=== PATIENT | male | born 2000 | race Two or more races ===

== ENCOUNTER 2018-03-21 12:04 | Emergency (ER) | payer MEDICAID, OTHER ==
[~2018-03-21] VITALS: Ht 177.8 cm; Wt 61.2 kg
[~2018-03-21 12:04] MED LIST: IBUPROFEN600 MG ORAL; NKM
[2018-03-21 12:32] VITALS: BP 114/63
[2018-03-21] MEDS ORDERED: Sodium Chloride 500ML 500 ML IV ONE (12:47)
--- NOTE | 2018-03-21 12:47 | Emergency Room Report ---
History of Present Illness General Chief Complaint: Syncope Source: Patient Present Illness HPI 17-year-old male patient presents ER complaining of fainting earlier today. Patient reports that he was in a bathroom stall attempting to defecate for several minutes when he stood up and began to feel dizzy and passed out. Patient reports straining with attempted bowel movement. Patient reports last normal bowel movement yesterday. Patient reports diffuse abdominal pain during this time. Patient denies other acute symptoms at this time. Patient denies history of fainting. Patient denies fever, chest pain, shortness of breath. Patient denies hitting his head after fainting, states it was not observed. Patient denies tinnitus, vertigo, hearing loss. Allergies: Coded Allergies: No Known Allergies (Unverified , 06/21/15) Patient History Past Medical History: see triage record Reviewed Nursing Documentation: PMH: Agreed; PSxH: Agreed Nursing Documentation-PMH Past Medical History: No Stated History Review of Systems All Other Systems: negative except mentioned in HPI Physical Exam Vital Signs Date Time Temp Pulse Resp B/P (MAP) Pulse Ox O2 Delivery O2 Flow Rate FiO2 03/21/18 12:12 98.6 76 18 114/63 98 Room Air 98.6 Sp02 EP Interpretation: reviewed, normal General Appearance: well appearing, no apparent distress, alert, GCS 15, non- toxic Head: normocephalic, atraumatic Eyes: bilateral eye normal inspection, bilateral eye PERRL ENT: hearing grossly normal, normal pharynx, no angioedema, normal voice, uvula midline, moist mucus membranes Neck: full range of motion Respiratory: lungs clear, normal breath sounds, no rhonchi, no respiratory distress, no accessory muscle use, no wheezing, speaking full sentences Cardiovascular #1: regular rate, rhythm, no edema Gastrointestinal: non tender, soft, no mass, non-distended, no guarding, no rebound, other - negative Vila, negative Rovsing, negative heel tap Genitourinary: no CVA tenderness Musculoskeletal: back normal, digits/nails normal, gait/station normal, normal range of motion, non-tender Neurologic: alert, oriented x3, responsive, motor strength/tone normal, sensory intact Psychiatric: mood/affect normal Skin: no rash Lymphatic: no adenopathy Medical Decision Making PA Attestation Dr. Arana is my supervising Physician whom patient management has been discussed with. Diagnostic Impression: Primary Impression: Vasovagal syncope Additional Impression: Constipation ER Course Pt. presents to the ED c/o fainting and abdominal pain. Ddx considered but are not limited to Syncope, vasovagal, constipation, arrhythmia, drug use. Patient denies vertigo or tinnitus, does not require imaging at this time. Vital signs: are WNL, pt. is afebrile ER COURSE: physical exam benign, no abdominal tenderness to palpation on distraction. Labs shows unremarkable, no elevation in LFTs, mild elevation of WBCs likely secondary to pain and stress, pt is afebrile, does not require acute treatment at this time. Return to ER for new or worsening of symptoms. EKG shows incomplete right bundle-branch block, Consult with Dr. Arana, does not require acute treatment, follow with cardiology, request referral from PCP. CXRshows no acute disease per the official reading. KUB shows no acute disease. Patient reading. UA negative Urine drug screen negative Discuss results with patient. Informed patient syncopal episode likely due to repeated straining while on toilet. Informed patient straining likely secondary to constipation. informed patient not to strain on the toilet. Increase water intake and fiber intake. Will provide medication for constipation symptoms. Take Tylenol for pain symptoms. On repeat physical examination, no abdominal TTP. patient resting comfortably no acute distress, nontoxic-appearing, walking around normally. Patient able to tolerate fluids and food by mouth. Patient okay for discharge to home. ER precautions given Follow with PCP and discuss referral to GI and cardiology. DISCHARGE: Rx provided for Lactulose Rx provided for Tylenol At this time pt is stable for d/c to home. Patient is resting comfortably, in no acute distress, nontoxic appearing, talking without difficulty, smiling and laughing. Patient to take medications as instructed Will provide with patient care instructions and any necessary prescriptions. Care plan and follow-up instructions provided. Patient instructed to follow-up with primary care provider in 3 - 5 days. Patient questions asked and answered. Patient reports understanding and agreement to treatment plan. ER precautions given. Patient instructed to return to ER immediately for any new or worsening of symptoms including but not limited to increasing SOB, persistent fever, chest pain, intractable vomiting. - Please note that this Emergency Department Report was dictated using [employer] technology software, occasionally this can lead to erroneous entry secondary to interpretation by the dictation equipment. Labs Test 03/21/18 13:05 03/21/18 13:15 Urine Color Yellow Urine Appearance Clear Urine pH 6.5 (4.5-8.0) Urine Specific [place] 1.015 (1.005-1.035) Urine Protein Negative (NEGATIVE) Urine Glucose (UA) Negative (NEGATIVE) Urine Ketones Negative (NEGATIVE) Urine Occult Blood Negative (NEGATIVE) Urine Nitrite Negative (NEGATIVE) Urine Bilirubin Negative (NEGATIVE) Urine Urobilinogen Normal MG/DL (0.0-1.0) Urine Leukocyte Esterase Negative (NEGATIVE) Urine Opiates Screen Negative (NEGATIVE) Urine Barbiturates Screen Negative (NEGATIVE) Phencyclidine (PCP) Screen Negative (NEGATIVE) Urine Amphetamines Screen Negative (NEGATIVE) Urine Benzodiazepines Screen Negative (NEGATIVE) Urine Cocaine Screen Negative (NEGATIVE) Urine Marijuana (THC) Screen Negative (NEGATIVE) White Blood Count 14.4 K/UL (4.8-10.8) Red Blood Count 5.81 M/UL (4.70-6.10) Hemoglobin 17.4 G/DL (14.2-18.0) Hematocrit 51.7 % (42.0-52.0) Mean Corpuscular Volume 89 FL (80-99) Mean Corpuscular Hemoglobin 30.0 PG (27.0-31.0) Mean Corpuscular Hemoglobin Concent 33.7 G/DL (32.0-36.0) Red Cell Distribution Width 10.9 % (11.6-14.8) Platelet Count 213 K/UL (150-450) Mean Platelet Volume 8.1 FL (6.5-10.1) Neutrophils (%) (Auto) 80.7 % (45.0-75.0) Lymphocytes (%) (Auto) 14.4 % (20.0-45.0) Monocytes (%) (Auto) 4.3 % (1.0-10.0) Eosinophils (%) (Auto) 0.1 % (0.0-3.0) Basophils (%) (Auto) 0.5 % (0.0-2.0) Sodium Level 141 MMOL/L (136-145) Potassium Level 4.5 MMOL/L (3.5-5.1) Chloride Level 103 MMOL/L (98-107) Carbon Dioxide Level 25 MMOL/L (21-32) Anion Gap 13 mmol/L (5-15) Blood Urea Nitrogen 14 mg/dL (7-18) Creatinine 1.1 MG/DL (0.55-1.30) Estimat Glomerular Filtration Rate > 60 mL/min (>60) Glucose Level 96 MG/DL (74-106) Calcium Level 10.0 MG/DL (8.5-10.1) Total Bilirubin 0.7 MG/DL (0.2-1.0) Aspartate Amino Transf (AST/SGOT) 31 U/L (15-37) Alanine Aminotransferase (ALT/SGPT) 40 U/L (12-78) Alkaline Phosphatase 76 U/L (46-116) Total Creatine Kinase 129 U/L (26-308) Creatine Kinase MB 0.9 NG/ML (0.0-3.6) Creatine Kinase MB Relative Index 0.6 Troponin I 0.000 ng/mL (0.000-0.056) Total Protein 8.7 G/DL (6.4-8.2) Albumin 4.8 G/DL (3.4-5.0) Globulin 3.9 g/dL Lipase 95 U/L (73-393) EKG Diagnostic Results Rate: normal Rhythm: NSR ST Segments: other - incomplete RBBB ASA given to the pt in ED: No PA Scribe Text Rad Guzman PA-C Rhythm Strip Diag. Results EP Interpretation: yes Rate: 63 Rhythm: NSR, no PVC's, no ectopy PA Scribe Text Rad Guzman PA-C Chest X-Ray Diagnostic Results Chest X-Ray Diagnostic Results : Chest X-Ray Ordered: Yes # of Views/Limited/Complete: 1 View Indication: Chest Pain EP Interpretation: Yes PA Xray: Interpretation reviewed, by supervising MD, and agrees with findings. Interpretation: no consolidation, no effusion, no pneumothorax, no acute cardiopulmonary disease Impression: No acute disease PA Scribe Text Rad Guzman PA-C Other X-Ray Diagnostic Results Other X-Ray Diagnostic Results : X-Ray ordered: LUB # of Views/Limited Vs Complete: 1 View Indication: Pain EP Interpretation: Yes PA Xray: Interpretation reviewed, by supervising MD, and agrees with findings. Interpretation: no dislocation, no soft tissue swelling, no fractures, nonspecific bowel gas Impression: No acute disease PA Scribe Text Rad Guzman PA-C Last Vital Signs Date Time Temp Pulse Resp B/P (MAP) Pulse Ox O2 Delivery O2 Flow Rate FiO2 03/21/18 12:12 98.6 76 18 114/63 98 Room Air 98.6 Disposition: HOME, SELF-CARE Condition: Stable Scripts Acetaminophen* (TYLENOL EXTRA STRENGTH*) 500 Mg Tablet 500 MG ORAL Q8H PRN for Prn Headache/Temp > 101, #30 TAB 0 Refills Prov: Giuseppe Guzman 03/21/18 Lactulose (LACTULOSE*) 20 Gm/30 Ml Solution 30 ML ORAL DAILY for 2 Days, #90 ML 0 Refills Prov: Giuseppe Guzman 03/21/18 Patient Instructions: Constipation, Adult, [id number], Vasovagal Syncope, Adult Additional Instructions: Followup with primary care provider in 3 -5 days. Followup with cardiology regarding incomplete RBBB. Drink plenty of fluids. Take medications as directed. Patient questions asked and answered. ER precautions given, patient instructed to return to ER immediately for any new or worsening of symptoms. Giuseppe Guzman March 21, 2018 12:46
[2018-03-21] MEDS ORDERED: Acetaminophen 500mg (ES) tab ORAL ONE (13:00)
[2018-03-21 13:32] LABS: HEMATOCRIT 51.7 % (42.0-52.0); HEMOGLOBIN 17.4 G/DL (14.2-18.0); LYMPHOCYTES % (AUTO) 14.4 % (20.0-45.0); MEAN CORPUSCULAR VOLUME 89 FL (80-99); NEUTROPHILS % (AUTO) 80.7 % (45.0-75.0); PLATELET COUNT 213 K/UL (150-450); RED BLOOD COUNT 5.81 M/UL (4.70-6.10); RED CELL DISTRIBUTION WIDTH 10.9 % (11.6-14.8); WHITE BLOOD COUNT 14.4 K/UL (4.8-10.8)
[2018-03-21 13:33] LABS: BASOPHILS % (AUTO) 0.5 % (0.0-2.0); EOSINOPHILS % (AUTO) 0.1 % (0.0-3.0); MONOCYTES % (AUTO) 4.3 % (1.0-10.0)
[2018-03-21 13:34] LABS: APPEARANCE,URINE CLEAR; BILIRUBIN, URINE NEGATIVE (NEGATIVE); COLOR,URINE YELLOW; GLUCOSE, URINE (UA) NEGATIVE (NEGATIVE); KETONES,URINE NEGATIVE (NEGATIVE); LEUKOCYTE ESTERASE ,URINE NEGATIVE (NEGATIVE); NITRITE,URINE NEGATIVE (NEGATIVE); PH,URINE 6.5 (4.5-8.0); PROTEIN,URINE NEGATIVE (NEGATIVE); UROBILINOGEN,URINE NORMAL MG/DL (0.0-1.0)
[2018-03-21 14:20] LABS: ALANINE AMINOTRANSFERASE 40 U/L (12-78); ALKALINE PHOSPHATASE 76 U/L (46-116); ANION GAP 13 mmol/L (5-15); ASPARTATE AMINO TRANSFERASE 31 U/L (15-37); BILIRUBIN,TOTAL 0.7 MG/DL (0.2-1.0); BLOOD UREA NITROGEN 14 mg/dL (7-18); CARBON DIOXIDE 25 MMOL/L (21-32); CHLORIDE 103 MMOL/L (98-107); CKMB 0.9 NG/ML (0.0-3.6); CREATINE KINASE 129 U/L (26-308); POTASSIUM 4.5 MMOL/L (3.5-5.1); SODIUM 141 MMOL/L (136-145)
[2018-03-21 14:27] LABS: ALBUMIN 4.8 G/DL (3.4-5.0); CREATININE 1.1 MG/DL (0.55-1.30)
[2018-03-21] MEDS ORDERED: TYLENOL EXTRA500 MG ORAL (15:54)
[2018-03-21] MEDS ORDERED: LACTULOSE20 GM/301 ORAL (15:54)
[2018-03-21 16:05] VITALS: BP 118/70
--- NOTE | 2018-03-21 17:05 | Diagnostic Imaging Report ---
Indication: Abdominal pain Technique: Supine view of the abdomen Comparison: none Findings: Bowel gas pattern is unremarkable. No unusual masses or calcifications. Impression: No acute process
--- NOTE | 2018-03-21 17:31 | Diagnostic Imaging Report ---
Indication: Shortness of breath Technique: One view of the chest Comparison: none Findings: Lungs and pleural spaces are clear. Heart size is normal Impression: No acute process
== END 2018-03-21 16:05 | disposition home or self-care (01) ==
LOC: EMR 12:55
DX: R55 Syncope and collapse (principal)
CPT/HCPCS: 36415; 71045; 74018; 80053; 80307; 81003; 82550; 82553; 83690; 84484; 85025; 96360; 96374; 99284; J7040

== ENCOUNTER 2020-06-23 21:55 | Emergency (ER) | payer OTHER ==
[~2020-06-23] VITALS: Ht 177.8 cm; Wt 65.8 kg
[~2020-06-23 21:55] MED LIST changes: +LACTULOSE20 GM/301 ORAL; +MAALOX ADVANCE1 EACH PO; +TYLENOL EXTRA500 MG ORAL; +ZOFRAN4 MG ORAL
[2020-06-23 22:08] VITALS: BP 128/83
--- NOTE | 2020-06-23 22:23 | Emergency Room Report ---
History of Present Illness General Chief Complaint: Abdominal Pain Source: Patient, Medical Record Present Illness HPI This a 19-year-old male with no past medical history presents with chief complaint abdominal pain. He was seen here about 12 hours ago. He woke up with abdominal pain with nausea vomiting and diarrhea. Initially pain was diffuse in nature. He was seen here and had laboratory data was unremarkable. Urinalysis was negative. Because pain got improved, he was discharged home with abdominal pain instruction. He said pain did not get better at home. Actually got worse. Now localized to the right lower quadrant. He has decreased appetite. Unable to eat dinner tonight. Worse with movement. Better with rest. Pain is 9 out of 10. Pain is sharp. Localized to right lower quadrant. No radiation. Still has nausea but no vomiting. Subjective fever. Allergies: Coded Allergies: No Known Allergies (Unverified , 06/21/15) COVID-19 Screening Contact w/high risk pt: No Experienced COVID-19 symptoms?: No COVID-19 Testing performed DRAWING IN MACHINE TENDER HELPER: No Patient History Past Medical History: see triage record, old chart reviewed Past Surgical History: none Pertinent Family History: none Social History: Denies: smoking Immunizations: other Reviewed Nursing Documentation: PMH: Agreed; PSxH: Agreed Review of Systems Constitutional: Reports: fever Eye: Denies: eye pain, blurred vision ENT: Denies: ear pain, nose congestion, throat swelling Respiratory: Denies: cough, shortness of breath Cardiovascular: Denies: chest pain, palpitations Gastrointestinal: Reports: abdominal pain, nausea; Denies: diarrhea, vomiting Musculoskeletal: Denies: back pain, joint pain Skin: Denies: rash Neurological: Denies: headache, numbness Endocrine: Denies: increased thirst, increased urine Hematologic/Lymphatic: Denies: easy bruising All Other Systems: negative except mentioned in HPI Physical Exam Vital Signs Date Time Temp Pulse Resp B/P (MAP) Pulse Ox O2 Delivery O2 Flow Rate FiO2 06/23/20 21:59 98.1 98 22 128/83 (98) 95 Room Air Vitals normal Sp02 EP Interpretation: reviewed, normal General Appearance: well appearing, no apparent distress, alert Head: normocephalic, atraumatic Eyes: bilateral eye PERRL, bilateral eye EOMI ENT: hearing grossly normal, normal pharynx Neck: full range of motion, supple, no meningismus Respiratory: chest non-tender, lungs clear, normal breath sounds Cardiovascular #1: regular rate, rhythm, no murmur Gastrointestinal: normal bowel sounds, no mass, no organomegaly, no bruit, non- distended, tenderness - Guarding to the right lower quadrant Musculoskeletal: back normal, normal range of motion, gait/station normal Psychiatric: mood/affect normal Medical Decision Making Diagnostic Impression: Primary Impression: Appendicitis, acute Qualified Codes: K35.30 - Acute appendicitis with localized peritonitis, without perforation or gangrene ER Course Patient presents with abdominal pain. Initially generalized now to right lower quadrant. CT scan show appendicitis. No perforation however. White count went from normal to 20,000 today. Antibiotics given here. Patient will be admitted versus transfer based on his insurance. I discussed case with Dr. Garcias at [facility]. He accepted the patient for transfer. Said that he will contact surgeon for consult. CT/MRI/US Diagnostic Results CT/MRI/US Diagnostic Results : Imaging Test Ordered: CT abdomen and pelvis Impression Read by radiologist. Acute appendicitis. The appendix is dilated measuring up to 13 mm in maximal diameter with wall thickening. No abscess or perforation. Last Vital Signs Date Time Temp Pulse Resp B/P (MAP) Pulse Ox O2 Delivery O2 Flow Rate FiO2 06/23/20 22:08 98.1 98 22 128/83 95 Room Air Status: improved Disposition: SHORT-TERM HOSP Condition: Stable Referrals: [facility],REFERRING (PCP) Danny Jose MD Jun 23, 2020 22:23
[2020-06-23] MEDS ORDERED: Morphine Sulfate 4mg/ml Inj (IV USE ONLY) IVP ONE (22:30)
[2020-06-23] MEDS ORDERED: Omnipaque-300 100ml vial INJ PRN (22:30)
--- NOTE | 2020-06-23 23:02 | Diagnostic Imaging Report ---
EXAM: CT Abdomen and Pelvis With Intravenous Contrast CLINICAL HISTORY: This a 19-year-old male with no past medical history presents with chief complaint abdominal pain. He was seen here about 12 hours ago. He woke up with abdominal pain with nausea vomiting and diarrhea. Initially pain was diffuse in nature. He was seen here and had laboratory data was unremarkable. Urinalysis was negative. Because pain got improved, he was discharged home with abdominal pain instruction. He said pain did not get better at home. Actually got worse. Now localized to the right lower quadrant. He has decreased appetite. Unable to eat dinner tonight. Worse with movement. Better with rest. Pain is 9 out of 10. Pain is sharp. Localized to right lower quadrant. No radiation. Still has nausea but no vomiting. Subjective fever. TECHNIQUE: Axial computed tomography images of the abdomen and pelvis with intravenous contrast. CTDI is 3.7 mGy and DLP is 192.5 mGy-cm. One or more of the following dose reduction techniques were used: automated exposure control, adjustment of the mA and/or kV according to patient size, use of iterative reconstruction technique. Coronal and sagittal reformatted images were created and reviewed. COMPARISON: No relevant prior studies available. FINDINGS: Limitations: Scant mesenteric fat limits evaluation of mesenteric inflammation. Lung bases: Unremarkable. No mass. No consolidation. ABDOMEN: Liver: Unremarkable. No mass. Gallbladder and bile ducts: Unremarkable. No calcified stones. No ductal dilation. Pancreas: Unremarkable. No mass. No ductal dilation. Spleen: Unremarkable. No splenomegaly. Adrenals: Unremarkable. No mass. Kidneys and ureters: Enlarged left kidney has multiple cysts. Stomach and bowel: Unremarkable. No obstruction. No mucosal thickening. PELVIS: Appendix: Appendix is dilated measuring up to 13 mm in maximal diameter with wall thickening and inspissated stool versus appendicolith near tip. Bladder: Unremarkable. No mass. Reproductive: Unremarkable as visualized. ABDOMEN and PELVIS: Intraperitoneal space: Unremarkable. No free air. No significant fluid collection. Bones/joints: No acute fracture. No dislocation. Soft tissues: Unremarkable. Vasculature: Unremarkable. No abdominal aortic aneurysm. Lymph nodes: Unremarkable. No enlarged lymph nodes. IMPRESSION: Appendicitis. No perforation or abscess. <MYCVCSECTION> Communications: 06/23/20 23:14 Verify Receipt Verified receipt with STEVE Pemberton in ER for Danny Jose MD on 06/23 23:14 (-07:00)
[2020-06-23] MEDS ORDERED: Piperacillin/Tazobactam 3.375 GM in NS 110 ML IVPB ONE (23:15)
[2020-06-23 23:27] LABS: HEMATOCRIT 48.2 % (42.0-52.0); HEMOGLOBIN 16.3 G/DL (14.2-18.0); MEAN CORPUSCULAR VOLUME 91 FL (80-99); PLATELET COUNT 173 K/UL (150-450); RED CELL DISTRIBUTION WIDTH 11.9 % (11.6-14.8); WHITE BLOOD COUNT 20.2 K/UL (4.8-10.8)
[2020-06-24 02:00] VITALS: BP 125/80
== END 2020-06-24 02:00 | disposition short-term general hospital (02) ==
LOC: EMR 22:12
DX: K35.30 Acute appendicitis with localized peritonitis, without perforation or gangrene (principal)
CPT/HCPCS: 36415; 74177; 85007; 85025; 96361; 96365; 96375; J2270; J2405; J2543; J7030; Q9965; U0002; Z7502; 99285

== ENCOUNTER 2020-09-17 20:36 | Emergency (ER) | payer OTHER ==
[~2020-09-17] VITALS: Ht 177.8 cm; Wt 65.8 kg
[2020-09-17 20:45] VITALS: BP 124/76
--- NOTE | 2020-09-17 20:45 | NUR ---
ED Nurse Note: pt walked into ED from home c/o dizzyness when turning head to the side and when standing up since this AM. Pt had 1 emesis episode prior to arrival. Pt denies any PMH. Pt is AAOx4, breathing even and unlabored. Vital signs stable as documented.
[2020-09-17] MEDS ORDERED: Metoclopramide 10mg/2ml Inj IVP ONE (21:45)
[2020-09-17] MEDS ORDERED: Meclizine 25mg tab ORAL ONE (21:45)
--- NOTE | 2020-09-17 22:00 | NUR ---
ED Nurse Note: Recieved pt care from MAYRA Melendez, pt is currently recieving IV Fluids , tolerating well, denies nausea and states dizziness from 08/09 to 02/07, denies cp, sob, or any other complaints or discomforts, will resume care and prepare for disposition.
[2020-09-17] MEDS ORDERED: MECLIZINE HCL25 MG ORAL (22:15)
[2020-09-17] MEDS ORDERED: REGLAN10 MG ORAL (22:15)
[2020-09-17 22:20] VITALS: BP 129/69
[2020-09-17 22:45] VITALS: BP 124/76
--- NOTE | 2020-09-17 22:45 | NUR ---
ER DISCHARGE NOTE: Patient is cleared to be discharged per ERMD, pt is aox4, on room air, with stable vital signs. pt was given dc and prescription instructions, pt was able to verbalize understanding, pt id band and iv site removed without complications. pt is able to ambulate with steady gait. pt took all belongings.
--- NOTE | 2020-09-20 08:56 | Emergency Room Report ---
History of Present Illness General Chief Complaint: Dizziness Source: Patient Present Illness HPI 19-year-old male presents with dizziness. Started x1 day. Notes room spinning sensation worse with sudden position change. Notes nausea, denies vomiting. Denies headache. Denies blurry vision. Denies neck stiffness. No other aggravating relieving factors. Denies any other associated symptoms Allergies: Coded Allergies: No Known Allergies (Unverified , 06/21/15) COVID-19 Screening Contact w/high risk pt: No Experienced COVID-19 symptoms?: No COVID-19 Testing performed CLIENT SERVICE COORDINATOR: No Patient History Past Medical History: none Past Surgical History: none Pertinent Family History: none Social History: Denies: smoking, alcohol use, drug use Immunizations: UTD Reviewed Nursing Documentation: PMH: Agreed; PSxH: Agreed Nursing Documentation-PMH Past Medical History: No Stated History Review of Systems All Other Systems: negative except mentioned in HPI Physical Exam Vital Signs Date Time Temp Pulse Resp B/P (MAP) Pulse Ox O2 Delivery O2 Flow Rate FiO2 09/17/20 20:42 98.4 75 16 117/78 (91) 98 Room Air Sp02 EP Interpretation: reviewed, normal General Appearance: no apparent distress, alert, GCS 15, non-toxic Head: normocephalic, atraumatic Eyes: bilateral eye normal inspection, bilateral eye PERRL ENT: hearing grossly normal, normal pharynx, no angioedema, normal voice Neck: full range of motion, supple/symm/no masses Respiratory: chest non-tender, lungs clear, normal breath sounds, speaking full sentences Cardiovascular #1: regular rate, rhythm, no edema Cardiovascular #2: 2+ carotid (R), 2+ carotid (L), 2+ radial (R), 2+ radial (L), 2+ dorsalis pedis (R), 2+ dorsalis pedis (L) Gastrointestinal: normal bowel sounds, non tender, soft, non-distended, no guarding, no rebound Rectal: deferred Genitourinary: normal inspection, no CVA tenderness Musculoskeletal: back normal, normal range of motion, gait/station normal, non- tender Neurologic: alert, motor strength/tone normal, documentation supervisor III-XII nml as tested, oriented x3, sensory intact, cerebellar normal, responsive, speech normal Psychiatric: judgement/insight normal, memory normal, mood/affect normal, no suicidal/homicidal ideation Reflexes: 3+ bicep (R), 3+ bicep (L), 3+ tricep (R), 3+ tricep (L), 3+ knee (R), 3+ knee (L) Lymphatic: no adenopathy Medical Decision Making Diagnostic Impression: Primary Impression: Vertigo ER Course Hospital Course 19-year-old male presents ED complaining of dizziness Differential diagnoses include: NH/unstable angina, SVT, A. fib, V. tach, CVA/TIA, intracranial mass, vertigo Clinical course Patient placed on stretcher. on personnel monitor. After initial history exam reveals young male in no acute distress. Sudden position change exacerbates his dizziness symptoms. Cranial nerves II through XII intact. No focal deficits. Ambulating with steady gait. Given meclizine, IV fluids, Reglan. On reassessment patient states he feels better. I discussed findings with patient. Safe for discharge close outpatient follow-up. I will provide referrals I. I feel this is a highly complex case requiring extensive working including EKG/Rhythm strip, Xray/CT/US, Blood/urine lab work, repeat exams while in ED, and administration of strong opiates/narcotics for pain control, admission to hospital or close patient follow up. Diagnosis - vertigo stable and discharged to home with prescription for meclizine, reglan. Followup with PMD. Return to ED if symptoms recur or worsen Last Vital Signs Date Time Temp Pulse Resp B/P (MAP) Pulse Ox O2 Delivery O2 Flow Rate FiO2 09/17/20 22:45 98.4 75 16 124/76 98 Room Air Status: improved Disposition: HOME, SELF-CARE Condition: Stable Scripts Meclizine Hcl* (MECLIZINE*) 25 Mg Tablet 25 MG ORAL THREE TIMES A DAY, #15 TAB Prov: Gamal Sherman MD 09/17/20 Metoclopramide Hcl* (REGLAN*) 10 Mg Tablet 10 MG ORAL THREE TIMES A DAY, #15 TAB Prov: Gamal Sherman MD 09/17/20 Referrals: [facility] Patient Instructions: Vertigo, Roberto Maneuver Self-Care Gamal Sherman MD Sep 20, 2020 08:56
== END 2020-09-17 22:45 | disposition home or self-care (01) ==
LOC: EMR 21:10
DX: R42 Dizziness and giddiness (principal)
CPT/HCPCS: 96374; J2765; J7040; Z7502; 99284